=== PATIENT | female | born 1980 | race Caucasian/White ===

== ENCOUNTER 2017-05-21 03:20 | Emergency (ER) | payer MEDICAID ==
[2017-05-21 03:32] LABS: URINE APPEARANCE CLEAR; URINE BILIRUBIN MODERATE (NEGATIVE); URINE BLOOD LARGE (NEGATIVE); URINE COLOR RED; URINE KETONE TRACE (NEGATIVE); URINE LEUKOCYTE ESTERASE MODERATE (NEGATIVE); URINE NITRITE POSITIVE (NEGATIVE)
[2017-05-21 03:37] LABS: URINE BACTERIA FEW
[2017-05-21] MEDS ORDERED: 0.9 % SODIUM CHLORIDE 1,000 ML BAG IV ONE ×2 (03:45→04:21)
[2017-05-21] MEDS ORDERED: ONDANSETRON HCL IV 4 MG/2 ML VIAL IV ONE (03:45)
[2017-05-21 04:02] LABS: BASO % 0.1 % (0-6); EOS % 0.5 % (0-6); HEMATOCRIT 42.9 % (35.0-47.0); HEMOGLOBIN 14.4 gm/dl (11.6-16.0); MEAN CELL VOLUME 88.6 fl (81-97); MEAN CORPUSCULAR HEMOGLOBIN 29.8 pg (27-33); MEAN CORPUSCULAR HGB CONC 33.6 g/dl (32-36); MEAN PLATELET VOLUME 9.4 fl (7.4-10.4); MONO % 4.4 % (0-9); PLATELET COUNT 378 K/uL (130-400); RED BLOOD COUNT 4.84 M/uL (3.80-5.40); RED CELL DISTRIBUTION WIDTH 13.3 % (11.5-14.5); WHITE BLOOD COUNT W/O DIFF 17.7 K/uL (4.2-12.2)
[2017-05-21 04:20] LABS: ALB/GLOB RATIO 1.4 (1.1-1.8); ALBUMIN 4.6 g/dL (4.0-5.0); ALKALINE PHOSPHATASE 73 U/L (35-104); ALT/SGPT 27 U/L (<33); AST/SGOT 19 U/L (10.0-35.0); BLOOD UREA NITROGEN 15 mg/dL (6-20); CREATININE 0.7 mg/dL (0.5-0.9); EST GLOMERULAR FILTRATION RATE > 60 mL/min; GLUCOSE,RANDOM 132 mg/dL (74-109); LIPASE 19 U/L (13-60); TOTAL PROTEIN 7.9 g/dL (6.6-8.7)
--- NOTE | 2017-05-21 04:21 | Emergency Department Record ---
History of Present Illness - General Chief complaint: Female Urogenital Problem Stated complaint: UTI? Time Seen by Provider: 05/21/17 03:41 Source: Patient Mode of Arrival: Ambulatory Limitations: No limitations - History of Present Illness Initial comments: pt has been having dysuria, freq, r ap, nausea today Complaint: Dysuria Onset/Timin -: Hour(s) Severity scale (1-10): 10 Consistency: Constant Improves with: None Worsens with: Urination Patient : No Associated Symptoms: Abdominal pain, Nausea/vomiting - Related Data Home Medications Medication Instructions Recorded Confirmed Last Taken Valacyclovir HCl [Valtrex] 1,000 mg PO DAILY 05/21/17 05/21/17 Unknown Previous Rx's Medication Instructions Recorded Ondansetron [Zofran Odt] 4 mg PO Q8H #10 tab.rapdis 05/21/17 Sulfamethoxazole/Trimethoprim 1 each PO BID #14 tablet 05/21/17 [Bactrim Ds Tablet] Allergies Allergy/AdvReac Type Severity Reaction Status Date / Time No Known Drug Allergies Allergy Verified 05/21/17 03:27 Travel Screening - Travel/Exposure Within Last 30 Days Have you traveled within the last 30 days?: No - Travel Symptoms Symptom Screening: None Review of Systems Reviewed: No additional complaints except as noted below Constitutional: Reports: As per HPI. Denies: Chills, Fever, Malaise, Night sweats, Weakness, Weight change Eyes: Reports: As per HPI. Denies: Eye discharge, Eye pain, Photophobia, Vision change ENT: Reports: As per HPI. Denies: Congestion, Dental pain, Ear pain, Epistaxis , Hearing loss, Throat pain Respiratory: Reports: As per HPI. Denies: Cough, Dyspnea, Hemoptysis, Stridor, Wheezes Cardiovascular: Reports: As per HPI. Denies: Arrhythmia, Chest pain, Dyspnea on exertion, Edema, Murmurs, Orthopnea, Palpitations, Paroxysmal nocturnal dyspnea, Rheumatic Fever, Syncope Endocrine: Reports: As per HPI. Denies: Fatigue, Heat or cold intolerance, Polydipsia, Polyuria Gastrointestinal: Reports: As per HPI, Abdominal pain, Nausea. Denies: Constipation, Diarrhea, Hematemesis, Hematochezia, Melena, Vomiting Genitourinary: Reports: As per HPI, Dysuria, Frequency, Hematuria, Urgency. Denies: Abnormal menses, Discharge, Dyspareunia, Incontinence, Retention Musculoskeletal: Reports: As per HPI. Denies: Arthralgia, Back pain, Gout, Joint swelling, Myalgia, Neck pain Skin: Reports: As per HPI. Denies: Bruising, Change in color, Change in hair/ nails, Lesions, Pruritus, Rash Neurological: Reports: As per HPI. Denies: Abnormal gait, Confusion, Headache, Numbness, Paresthesias, Seizure, Tingling, Tremors, Vertigo, Weakness Psychiatric: Reports: As per HPI. Denies: Anxiety, Auditory hallucinations, Depression, Homicidal thoughts, Suicidal thoughts, Visual hallucinations Hematological/Lymphatic: Reports: As per HPI. Denies: Anemia, Blood Clots, Easy bleeding, Easy bruising, Swollen glands Past Medical History - SOCIAL HISTORY Smoking Status: Never smoker - RESPIRATORY Hx Respiratory Disorders: No - CARDIOVASCULAR Hx Cardio Disorders: No - NEURO Hx Neuro Disorders: Yes Hx Headaches: Yes - GI Hx GI Disorders: No - Hx Genitourinary Disorders: Yes Comment:: genital herpes - ENDOCRINE Hx Endocrine Disorders: No - MUSCULOSKELETAL Hx Musculoskeletal Disorders: No - PSYCH Hx Psych Problems: No - HEMATOLOGY/ONCOLOGY Hx Hematology/Oncology Disorders: No Family Medical History Any Significant Family History?: Yes Family Hx Comment (NOT TO BE USED IN PLACE OF ITEMS BELOW): Mom and grandparents w/kidney stones Hx Cancer: Mother, Grandparents Physical Exam - General General Appearance: Alert, Oriented x3, Cooperative, Mild distress - Head Head exam: Normal inspection - Eye Eye exam: Normal appearance, PERRL, EOMI Pupils: Normal accommodation - ENT ENT exam: Normal exam, Mucous membranes moist, Normal external ear exam, Normal orophraynx Ear exam: Normal external inspection. negative: External canal tenderness Nasal Exam: Normal inspection. negative: Discharge, Sinus tenderness Mouth exam: Normal external inspection, Tongue normal Teeth exam: Normal inspection. negative: Dental caries Throat exam: Normal inspection. negative: Tonsillar erythema, Tonsillar exudate - Neck Neck exam: Normal inspection, Full ROM. negative: Tenderness - Respiratory Respiratory exam: Normal lung sounds bilaterally. negative: Respiratory distress - Cardiovascular Cardiovascular Exam: Normal rhythm, Normal heart sounds, Tachycardia - GI/Abdominal GI/Abdominal exam: Soft, Normal bowel sounds, Tenderness (ruq) - Rectal Rectal exam: Deferred - exam: Deferred - Extremities Extremities exam: Normal inspection, Full ROM, Normal capillary refill. negative: Tenderness - Back Back exam: Reports: CVA tenderness (R), Full ROM. Denies: Muscle spasm, Rash noted, Tenderness - Neurological Neurological exam: Alert, CN II-XII intact, Normal gait, Oriented X3, Reflexes normal - Psychiatric Psychiatric exam: Normal affect, Normal mood - Skin Skin exam: Dry, Intact, Normal color, Warm Course Vital Signs 05/21/17 03:29 Temperature 97.5 F L Pulse Rate [ 105 H Pulse Ox Probe] Respiratory 20 Rate Blood Pressure 143/99 [Left Arm] Pulse Ox 99 Medical Decision Making - Lab Data Result diagrams: 05/21/17 03:55 05/21/17 03:55 Lab Results 05/21/17 05/21/17 05/21/17 Range/Units 03:32 03:55 03:55 WBC 17.7 H (4.2-12.2) K/uL RBC 4.84 (3.80-5.40) M/uL Hgb 14.4 (11.6-16.0) gm/dl Hct 42.9 (35.0-47.0) % MCV 88.6 (81-97) fl MCH 29.8 (27-33) pg MCHC 33.6 (32-36) g/dl RDW 13.3 (11.5-14.5) % Plt Count 378 (130-400) K/uL MPV 9.4 (7.4-10.4) fl Neutrophils % 89.0 H (47-80) % Band Neutrophils % 1.0 (0-5) % Lymphocytes % 5.0 L (16-45) % Monocytes % 4.4 (0-9) % Eosinophils % 0.5 (0-6) % Basophils % 0.1 (0-6) % Lymphocytes 6.0 L (16-45) % Monocytes 4.0 (0-9) % Basophils 0.0 (0-6) % Eosinophil Count 0.0 (0-6) % Urine Color Red H Urine Appearance Clear Urine pH 5.0 (5.0-8.0) Ur Specific [place] 1.025 (1.002-1.030) Urine Protein >=2000 mg/dl H (NEGATIVE) Urine Glucose (UA) 100 mg/dl H (NEGATIVE) Urine Ketones Trace H (NEGATIVE) Urine Blood Large H (NEGATIVE) Urine Nitrite Positive H (NEGATIVE) Urine Bilirubin Moderate H (NEGATIVE) Urine Urobilinogen 2.0 H (0.20 - 1.00) E.U./dL Ur Leukocyte Esterase Moderate H (NEGATIVE) Urine RBC Too numerous to cnt (NONE SEEN) Urine WBC 3 - 5 (0-2/hpf) Ur Epithelial Cells 3 - 6 (FEW) Urine Bacteria Few Urine HCG, Qual Negative (NEGATIVE) Disposition Disposition: Discharge Clinical Impression: UTI (urinary tract infection) Qualifiers: Urinary tract infection type: acute cystitis Hematuria presence: with hematuria Qualified Code(s): N30.01 - Acute cystitis with hematuria Disposition: Home, Self-Care Condition: (1) Good Instructions: Urinary Tract Infection in Women (ED) Additional Instructions: follow up with family doctor. return sooner if worse. push fluids. Prescriptions: Ondansetron [Zofran Odt] 4 mg PO Q8H #10 tab.rapdis Sulfamethoxazole/Trimethoprim [Bactrim Ds Tablet] 1 each PO BID #14 tablet Forms: Patient Portal Access Quality - Quality Measures Quality Measures: N/A - Blood Pressure Screening Does Patient Have Any of the Following: No Blood Pressure Classification: Hypertensive Reading Systolic Measurement: 143 Diastolic Measurement: 99 Screening for High Blood Pressure: < First Hypertensive BP, F/U Documented > [ G8950] First Hypertensive Follow-up Interventions: Follow-up with rescreen GT 1 day and LT 4 weeks.
[2017-05-21] MEDS ORDERED: KETOROLAC 30 MG/ML VIAL IVP ONE (04:23)
[2017-05-21] MEDS ORDERED: TMP/SMZ 160MG/800MG TAB PO ONE (04:45)
--- NOTE | 2017-05-21 09:43 | CT SCAN REPORT ---
EXAM: CT OF THE ABDOMEN AND PELVIS WITHOUT CONTRAST HISTORY: ABDOMINAL PAIN. TECHNIQUE: Sequential axial images were obtained from the diaphragms through the ischiorectal fossa without intravenous or oral contrast administration. FINDINGS: The visualized lung bases appear normal. The nonopacified liver, gallbladder, pancreas and spleen appear normal. The adrenal glands and kidneys appear normal. There are mildly distended loops of bowel in the left upper quadrant. No definitive obstruction. The appendix is visualized and appears normal. The colon appears normal. There is an IUD within the endometrium. The pelvis appears normal. The urinary bladder appears normal. The osseous structures are normal. IMPRESSION: MILDLY DISTENDED SMALL BOWEL IN THE LEFT UPPER QUADRANT. FINDINGS ARE LIKELY RELATED TO ENTERITIS. THE REMAINDER OF THE EXAMINATION IS UNREMARKABLE. JOB NUMBER: [id number] [facility]
== END 2017-05-21 05:15 | disposition home or self-care (01) ==
LOC: ER 03:20
DX: N30.01 Acute cystitis with hematuria (principal); R10.31 Right lower quadrant pain; R11.2 Nausea with vomiting, unspecified
CPT/HCPCS: 99284 ×2; 96374; 96375; 96361; 83690; 80053; 81001; 81025; 85027; 74176; J1885; J2405; J3490; J7030

== ENCOUNTER 2018-01-27 13:23 | Emergency (ER) | payer MEDICAID ==
--- NOTE | 2018-01-27 14:07 | Emergency Department Record ---
History of Present Illness - General Chief Complaint: Chest Pain Stated Complaint: CHEST PAIN Time Seen by Provider: 01/27/18 13:48 Source: Patient, RN notes reviewed Mode of Arrival: Ambulatory - History of Present Illness Initial Comments: fell four days ago and she has pain in the left rib cage under her breast and worse with motion of the ribs and palpation of the ribs. Onset/Timin -: Days(s) Pain Location: Left chest Pain Radiation: None Severity: Moderate Severity scale (1-10): 8 Consistency: Constant Improves With: Other Worsens With: Nothing Treatments Prior to Arrival: None - Related Data Home Medications Medication Instructions Recorded Confirmed Last Taken Aspirin/Acetaminophen/Caffeine 1 each PO ASDIR 01/27/18 01/27/18 Unknown [Excedrin Migraine Caplet] Hydrocodone/Acetaminophen [[place] 1 each PO ASDIR 01/27/18 01/27/18 Unknown 5-325 Tablet] Ibuprofen [Motrin 400Mg] 400 mg PO Q8H PRN 01/27/18 01/27/18 Unknown Previous Rx's Medication Instructions Recorded Naproxen [Naprosyn] 500 mg PO BID #20 tablet 01/27/18 Allergies Allergy/AdvReac Type Severity Reaction Status Date / Time No Known Drug Allergies Allergy Verified 01/27/18 13:30 Travel Screening - Travel/Exposure Within Last 30 Days Have you traveled within the last 30 days?: No Review of Systems Reviewed: No additional complaints except as noted below Constitutional: Reports: As per HPI. Denies: Chills, Fever, Malaise, Night sweats, Weakness, Weight change Eyes: Reports: As per HPI. Denies: Eye discharge, Eye pain, Photophobia, Vision change ENT: Reports: As per HPI. Denies: Congestion, Dental pain, Ear pain, Epistaxis , Hearing loss, Throat pain Respiratory: Reports: As per HPI. Denies: Cough, Dyspnea, Hemoptysis, Stridor, Wheezes Cardiovascular: Reports: As per HPI. Denies: Arrhythmia, Chest pain, Dyspnea on exertion, Edema, Murmurs, Orthopnea, Palpitations, Paroxysmal nocturnal dyspnea, Rheumatic Fever, Syncope Endocrine: Reports: As per HPI. Denies: Fatigue, Heat or cold intolerance, Polydipsia, Polyuria Gastrointestinal: Reports: As per HPI. Denies: Abdominal pain, Constipation, Diarrhea, Hematemesis, Hematochezia, Melena, Nausea, Vomiting Genitourinary: Reports: As per HPI. Denies: Abnormal menses, Discharge, Dyspareunia, Dysuria, Frequency, Hematuria, Incontinence, Retention, Urgency Musculoskeletal: Reports: As per HPI. Denies: Arthralgia, Back pain, Gout, Joint swelling, Myalgia, Neck pain Skin: Reports: As per HPI. Denies: Bruising, Change in color, Change in hair/ nails, Lesions, Pruritus, Rash Neurological: Reports: As per HPI. Denies: Abnormal gait, Confusion, Headache, Numbness, Paresthesias, Seizure, Tingling, Tremors, Vertigo, Weakness Psychiatric: Reports: As per HPI. Denies: Anxiety, Auditory hallucinations, Depression, Homicidal thoughts, Suicidal thoughts, Visual hallucinations Hematological/Lymphatic: Reports: As per HPI. Denies: Anemia, Blood Clots, Easy bleeding, Easy bruising, Swollen glands Past Medical History - SOCIAL HISTORY Smoking Status: Never smoker Alcohol Use: None Drug Use: None - RESPIRATORY Hx Respiratory Disorders: No - CARDIOVASCULAR Hx Cardio Disorders: No - NEURO Hx Neuro Disorders: Yes Hx Headaches: Yes - GI Hx GI Disorders: No - Hx Genitourinary Disorders: Yes Comment:: genital herpes - ENDOCRINE Hx Endocrine Disorders: No - MUSCULOSKELETAL Hx Musculoskeletal Disorders: No - PSYCH Hx Psych Problems: Yes Hx Anxiety: Yes Hx Depression: Yes - HEMATOLOGY/ONCOLOGY Hx Hematology/Oncology Disorders: No Family Medical History Any Significant Family History?: Yes Family Hx Comment (NOT TO BE USED IN PLACE OF ITEMS BELOW): Mom and grandparents w/kidney stones Hx Cancer: Mother, Grandparents Physical Exam - General General Appearance: Alert, Oriented x3, Cooperative, No acute distress - Head Head exam: Normal inspection - Eye Eye exam: Normal appearance, PERRL Pupils: Normal accommodation - ENT ENT exam: Normal exam, Mucous membranes moist, Normal external ear exam, Normal orophraynx, TM's normal bilaterally Ear exam: Normal external inspection. negative: External canal tenderness Nasal Exam: Normal inspection. negative: Discharge, Sinus tenderness Mouth exam: Normal external inspection, Tongue normal Teeth exam: Normal inspection. negative: Dental caries Throat exam: Normal inspection. negative: Tonsillar erythema, Tonsillar exudate - Neck Neck exam: Normal inspection, Full ROM. negative: Tenderness - Respiratory Respiratory exam: Normal lung sounds bilaterally. negative: Respiratory distress - Cardiovascular Cardiovascular Exam: Regular rate, Normal rhythm, Normal heart sounds - GI/Abdominal GI/Abdominal exam: Soft, Normal bowel sounds. negative: Tenderness - Rectal Rectal exam: Deferred - exam: Deferred - Extremities Extremities exam: Normal inspection, Full ROM, Normal capillary refill. negative: Tenderness - Back Back exam: Reports: Normal inspection, Full ROM. Denies: Muscle spasm, Rash noted, Tenderness - Neurological Neurological exam: Alert, Normal gait, Oriented X3, Reflexes normal - Psychiatric Psychiatric exam: Normal affect, Normal mood - Skin Skin exam: Dry, Intact, Normal color, Warm Course Vital Signs 01/27/18 13:26 Temperature 97.9 F Pulse Rate 104 H Respiratory 16 Rate Blood Pressure 149/107 Pulse Ox 99 Medical Decision Making - Data Complexity MDM Data: X-Ray Ordered and/or Reviewed (no fractures of ribs), EKG Ordered and/ or Reviewed (No acute changes ,NSR) Disposition Clinical Impression: Contusion of rib on left side Qualifiers: Encounter type: initial encounter Qualified Code(s): S20.212A - Contusion of left front wall of thorax, initial encounter Disposition: Home, Self-Care Condition: (1) Good Instructions: Chest Wall Pain (ED) Additional Instructions: use tylenol or naprosyn for pain Prescriptions: Naproxen [Naprosyn] 500 mg PO BID #20 tablet Forms: Patient Portal Access Time of Disposition: 14:48 Quality - Quality Measures Quality Measures: N/A - Blood Pressure Screening Does Patient Have Any of the Following: No Blood Pressure Classification: Hypertensive Reading Systolic Measurement: 149 Diastolic Measurement: 107 Screening for High Blood Pressure: < First Hypertensive BP, F/U Documented > [ G8950] First Hypertensive Follow-up Interventions: Referral to alternative/primary care provider.
--- NOTE | 2018-01-29 08:31 | RADIOLOGY REPORT ---
EXAM: LEFT RIBS WITH PA CHEST HISTORY: LEFT LATERAL MID RIB PAIN UNDER THE AXILLA. FELL FIVE DAYS AGO. TECHNIQUE: A PA upright view of the chest and three views of the left ribs were obtained. Comparison: None. Encounter: Initial. FINDINGS: The heart, mediastinum and pulmonary vasculature are normal. The lungs are clear. There is no pneumothorax or effusion. The left ribs appears appear intact. There is no visible rib fracture or destructive process. IMPRESSION: NO ACUTE CHEST OR RIB PATHOLOGY IDENTIFIED. [facility]BER: [id number] [facility]
== END 2018-01-27 14:59 | disposition home or self-care (01) ==
LOC: ER 13:23
DX: S20.212A Contusion of left front wall of thorax, initial encounter (principal); R07.81 Pleurodynia; W19.XXXA Unspecified fall, initial encounter
CPT/HCPCS: 93005; 93010; 99284